=== PATIENT | male | born 1995 | race Two or more races ===

== ENCOUNTER 2020-11-14 11:19 | Emergency (ER) | payer SELFPAY ==
[~2020-11-14] VITALS: Ht 170.2 cm; Wt 70.0 kg
[2020-11-14] MEDS ORDERED: NITROGLYCERIN SUBLINGUAL 0.4 MG BOTTLE OF 25. SL PRN (12:45)
--- NOTE | 2020-11-14 12:58 | RAD ---
Exam Date: 11/14/2020 12:41 PM XR CHEST 1V Indication: Reason: chest pain for two months / Spl. Instructions: / History: FINDINGS/ IMPRESSION: The cardiac silhouette and pulmonary vasculature are within normal limits. There is no focal consolidation, pleural effusion or pneumothorax. The visualized osseous structures are intact. Electronically signed by: Osbaldo Gilman MD (11/14/2020 12:56 PM) [id number]
[2020-11-14 12:59] LABS: BASO % 0 % (0-3); EOS # 0.1 x10^3/uL (0.0-0.7); EOS % 1 % (0-3); HEMATOCRIT 46.3 % (39.0-53.0); HEMOGLOBIN 15.9 g/dL (13.0-17.5); LYMPH # 2.2 x10^3/uL (1.0-4.8); LYMPH % 34 % (24-48); MEAN CORPUSCULAR HEMOGLOBIN 29 pg (25-35); MEAN CORPUSCULAR HGB CONC 35 g/dL (31-37); MEAN CORPUSCULAR VOLUME 84 fL (79-100); MONO # 0.7 x10^3/uL (0.0-1.1); MONO % 11 % (0-9); NEUT # 3.6 x10^3/uL (1.8-7.7); NEUT % 54 % (31-73); PLATELET COUNT 416 x10^3/uL (140-400); RED CELL DISTRIBUTION WIDTH 13.3 % (11.5-14.5); WHITE BLOOD COUNT 6.6 x10^3/uL (4.0-11.0)
[2020-11-14] MEDS ORDERED: MORPHINE SULFATE 2 MG/ML VIAL. ONE (13:13)
[2020-11-14 13:16] LABS: CALCIUM 9.8 mg/dL (8.5-10.1); CREATININE 0.9 mg/dL (0.7-1.3); GFR 104.6; POTASSIUM 3.9 mmol/L (3.5-5.1)
[2020-11-14] MEDS: MORPHINE SULFATE 2 MG/ML VIAL. IV/SQ PRN (13:16)
[2020-11-14] MEDS: ASPIRIN 325 MG TABLET PO ONE (13:16)
[2020-11-14 13:19] LABS: ALBUMIN 5.2 g/dL (3.4-5.0); ALBUMIN/GLOBULIN RATIO 1.7 (1.0-1.7); MAGNESIUM 2.2 mg/dL (1.8-2.4); TOTAL BILIRUBIN 0.7 mg/dL (0.2-1.0); TOTAL PROTEIN 8.2 g/dL (6.4-8.2)
[2020-11-14 14:01] VITALS: BP 116/74
[2020-11-14 15:33] LABS: BILIRUBIN,URINE NEGATIVE (NEG); CLARITY,URINE CLEAR; COLOR,URINE YELLOW; NITRITE,URINE NEGATIVE (NEG); PROTEIN,URINE NEGATIVE (NEG-TRACE); UROBILINOGEN,URINE 0.2 mg/dL (0.2 mg/dL)
[2020-11-14 15:40] LABS: AMPHETAMINE/METHAMPHETAMINE NEG (NEG); BARBITURATES NEG (NEG); BENZODIAZEPINES NEG (NEG); CANNABINOIDS POS (NEG); COCAINE NEG (NEG); METHADONE NEG (NEG); OPIATES POS (NEG); PHENCYCLIDINE NEG (NEG)
[2020-11-14 15:58] LABS: BACTERIA,URINE FEW /HPF (0-FEW)
[2020-11-14 16:00] LABS: AMORPHOUS SEDIMENT,UR PRESENT /HPF; RBC,URINE RARE /HPF (0-2); WBC,URINE 0 /HPF (0-4)
--- NOTE | 2020-11-14 16:33 | PHYS DOC ---
Past Medical History Past Medical History: High Cholesterol Past Surgical History: No Surgical History Smoking Status: Current Every Day Smoker Additional Information: MARIJUA[place] Alcohol Use: Sober General Adult EDM: Chief Complaint: CHEST WALL PAIN HPI: HPI: Patient is a 24 year old male with history of high cholesterol who presents to the ED today complaining of a 7 out of 10 left-sided chest pain, symptoms began 2 months ago. Patient states he has the sensation of water/fluid rushing thro ugh his chest/heart region. Patient denies anything specifically exacerbating or relieving the pain but he states it is a weird feeling. He is also complaining of nose bleeding on and off for 1 year. He is also complaining of high cholesterol, he states he was tested for cholesterol 2 weeks ago and he was positive. Denies any shortness of breath. Denies anything specifically exacerbating or relieving his chest pain Review of Systems: Review of Systems: Constitutional: Denies fever or chills. [] Eyes: Denies change in visual acuity. [] HENT: Denies nasal congestion or sore throat. [] Respiratory: Denies cough or shortness of breath. [] Cardiovascular: Denies chest pain or edema. [] GI: Denies abdominal pain, nausea, vomiting, bloody stools or diarrhea. [] : Denies dysuria. [] Musculoskeletal: Denies back pain or joint pain. [] Integument: Denies rash. [] Neurologic: Denies headache, focal weakness or sensory changes. [] Endocrine: Denies polyuria or polydipsia. [] Lymphatic: Denies swollen glands. [] Psychiatric: Denies depression or anxiety. [] Heart Score: C/O Chest Pain: Yes HEART Score for Chest Pain: HEART Score for Chest Pain Response (Comments) Value History Slighlty/Non-Suspicious 0 ECG Normal 0 Age < 45 0 Risk Factors 1 or 2 Risk Factors 1 Troponin < Normal Limit 0 Total 1 Risk Factors: Risk Factors: DM, Current or recent (<one month) smoker, HTN, HLP, family history of CAD, obesity. Risk Scores: Score 0 - 3: 2.5% MACE over next 6 weeks - Discharge Home Score 4 - 6: 20.3% MACE over next 6 weeks - Admit for Clinical Observation Score 7 - 10: 72.7% MACE over next 6 weeks - Early Invasive Strategies Current Medications: Current Medications Medications (Trade) Dose Ordered Sig/[facility] Start Time Stop Time Status Last Admin Dose Admin Aspirin (Shannon Aspirin) 325 mg 1X ONCE 11/14/20 12:45 11/14/20 13:12 DC 11/14/20 13:16 325 MG Morphine Sulfate (Morphine Sulfate) 2 mg STK-MED ONCE 11/14/20 13:13 11/14/20 13:14 DC Nitroglycerin (Nitrostat) 0.4 mg PRN Q5MIN PRN 11/14/20 12:45 11/15/20 12:44 Allergies: Allergies: Allergies Coded Allergies Type Severity Reaction Last Updated Verified No Known Drug Allergies 11/14/20 No Physical Exam: PE: Constitutional: Well developed, well nourished, no acute distress, non-toxic appearance. [] HENT: Normocephalic, atraumatic, bilateral external ears normal, oropharynx moist, no oral exudates, nose normal. [] Eyes: PERRLA, EOMI, conjunctiva normal, no discharge. [] Neck: Normal range of motion, no tenderness, supple, no stridor. [] Cardiovascular:Heart rate regular rhythm, no murmur [] Lungs & Thorax: Bilateral breath sounds clear to auscultation [] Abdomen: Bowel sounds normal, soft, no tenderness, no masses, no pulsatile masses. [] Skin: Warm, dry, no erythema, no rash. [] Back: No tenderness, no CVA tenderness. [] Extremities: No tenderness, no cyanosis, no clubbing, ROM intact, no edema. [] Neurologic: Alert and oriented X 3, normal motor function, normal sensory function, no focal deficits noted. [] Psychologic: Affect normal, judgement normal, mood normal. [] Current Patient Data: Labs: Laboratory Tests Test 11/14/20 12:45 11/14/20 15:12 11/14/20 15:37 White Blood Count 6.6 x10^3/uL (4.0-11.0) Red Blood Count 5.50 x10^6/uL (4.30-5.70) Hemoglobin 15.9 g/dL (13.0-17.5) Hematocrit 46.3 % (39.0-53.0) Mean Corpuscular Volume 84 fL (79-100) Mean Corpuscular Hemoglobin 29 pg (25-35) Mean Corpuscular Hemoglobin Concent 35 g/dL (31-37) Red Cell Distribution Width 13.3 % (11.5-14.5) Platelet Count 416 x10^3/uL (140-400) H Neutrophils (%) (Auto) 54 % (31-73) Lymphocytes (%) (Auto) 34 % (24-48) Monocytes (%) (Auto) 11 % (0-9) H Eosinophils (%) (Auto) 1 % (0-3) Basophils (%) (Auto) 0 % (0-3) Neutrophils # (Auto) 3.6 x10^3/uL (1.8-7.7) Lymphocytes # (Auto) 2.2 x10^3/uL (1.0-4.8) Monocytes # (Auto) 0.7 x10^3/uL (0.0-1.1) Eosinophils # (Auto) 0.1 x10^3/uL (0.0-0.7) Basophils # (Auto) 0.0 x10^3/uL (0.0-0.2) D-Dimer (Inga) < 0.27 ug/mlFEU Sodium Level 142 mmol/L (136-145) Potassium Level 3.9 mmol/L (3.5-5.1) Chloride Level 104 mmol/L (98-107) Carbon Dioxide Level 30 mmol/L (21-32) Anion Gap 8 (6-14) Blood Urea Nitrogen 11 mg/dL (8-26) Creatinine 0.9 mg/dL (0.7-1.3) Estimated GFR (Cockcroft-Gault) 104.6 BUN/Creatinine Ratio 12 (6-20) Glucose Level 86 mg/dL (70-99) Calcium Level 9.8 mg/dL (8.5-10.1) Magnesium Level 2.2 mg/dL (1.8-2.4) Total Bilirubin 0.7 mg/dL (0.2-1.0) Aspartate Amino Transferase (AST) 24 U/L (15-37) Alanine Aminotransferase (ALT) 31 U/L (16-63) Alkaline Phosphatase 104 U/L (46-116) Troponin I Quantitative < 0.017 ng/mL (0.000-0.055) < 0.017 ng/mL (0.000-0.055) DX-Iyk-F-Type Natriuretic Peptide 18 pg/mL (0-124) Total Protein 8.2 g/dL (6.4-8.2) Albumin 5.2 g/dL (3.4-5.0) H Albumin/Globulin Ratio 1.7 (1.0-1.7) Thyroid Stimulating Hormone (TSH) 0.946 uIU/mL (0.358-3.74) Urine Collection Type Unknown Urine Color Yellow Urine Clarity Clear Urine pH 5.0 (<5.0-8.0) Urine Specific [place] <=1.005 (1.000-1.030) Urine Protein Negative mg/dL (NEG-TRACE) Urine Glucose (UA) Negative mg/dL (NEG) Urine Ketones (Stick) Trace mg/dL (NEG) Urine Blood Negative (NEG) Urine Nitrite Negative (NEG) Urine Bilirubin Negative (NEG) Urine Urobilinogen Dipstick 0.2 mg/dL (0.2 mg/dL) Urine Leukocyte Esterase Negative (NEG) Urine RBC Rare /HPF (0-2) Urine WBC 0 /HPF (0-4) Urine Squamous Epithelial Cells Occ /LPF Urine Amorphous Sediment Present /HPF Urine Bacteria Few /HPF (0-FEW) Urine Mucus Slight /LPF Urine Opiates Screen Pos (NEG) Urine Methadone Screen Neg (NEG) Urine Barbiturates Neg (NEG) Urine Phencyclidine Screen Neg (NEG) Urine Amphetamine/Methamphetamine Neg (NEG) Urine Benzodiazepines Screen Neg (NEG) Urine Cocaine Screen Neg (NEG) Urine Cannabinoids Screen Pos (NEG) Urine Ethyl Alcohol Neg (NEG) Laboratory Tests 11/14/20 12:45 Laboratory Tests 11/14/20 12:45 Vital Signs: Vital Signs Date Time Temp Pulse Resp B/P (MAP) Pulse Ox O2 Delivery O2 Flow Rate FiO2 11/14/20 14:01 88 116/74 (88) 99 Room Air 11/14/20 12:15 98.7 12 98.7 EKG: EKG: Interpreted by Dr. Scruggs atrial arrhythmia with flipped T waves, Atrial beats non Specific ST elevations on V2 no STEMI[] Radiology/Procedures: Radiology/Procedures: []PROCEDURE: PORTABLE CHEST 1V Exam Date: 11/14/2020 12:41 PM XR CHEST 1V Indication: Reason: chest pain for two months / Spl. Instructions: / History: FINDINGS/ IMPRESSION: The cardiac silhouette and pulmonary vasculature are within normal limits. There is no focal consolidation, pleural effusion or pneumothorax. The visualized osseous structures are intact. Electronically signed by: Sirisha Gilman MD (11/14/2020 12:56 PM) [id number] DICTATED and SIGNED BY: SIRISHA GILMAN MD DATE: 11/14/20 [id number] 0 Course & Med Decision Making: Course & Med Decision Making Pertinent Labs and Imaging studies reviewed. 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 EKG noted for atrial arrhythmias. Labs are negative. Patient advised to follow-up with a velvet weaver. Patient is a smoker, encouraged to consider smoking cessation, nicotine patches provided. Spent 5 minutes on this discussion. Noted for marijuana use, encouraged to consider not using drugs. Provided cardiology for follow-up Dragon Disclaimer: Palomo Disclaimer: This electronic medical record was generated, in whole or in part, using a voice recognition dictation system. Departure Departure Impression: Primary Impression: Arrhythmia Qualified Codes: I49.9 - Cardiac arrhythmia, unspecified Additional Impressions: Chest pain Qualified Codes: R07.9 - Chest pain, unspecified Epistaxis Smoking addiction Marijuana use Disposition: HOME / SELF CARE / HOMELESS Condition: STABLE Referrals: NO PCP (PCP) LUIS MANUEL HILL MD follow up in the next 7 days Patient Instructions: Cardiac Arrhythmia, Chest Pain (Nonspecific), Nosebleed, [id number] Additional Instructions: You were evaluated in the emergency room and noted to have arrhythmias. Please follow-up with the provided velvet weaver as soon as possible. Also follow-up with your primary care doctor. Please consider smoking cessation Scripts Nicotine (NICODERM CQ 21mg) 1 Each Patch.td24 1 PATCH TP DAILY, #28 PATCH 1 Refill Prov: JULES MATHEWS APRN 11/14/20 JULES MATHEWS APRN Nov 14, 2020 16:33
[2020-11-14] MEDS ORDERED: NICO1PAT21 TP (16:51)
== END 2020-11-14 16:55 | disposition home or self-care (01) ==
LOC: ER 11:19
DX: I49.9 Cardiac arrhythmia, unspecified (principal); R07.89 Other chest pain; R04.0 Epistaxis; R20.2 Paresthesia of skin; F12.90 Cannabis use, unspecified, uncomplicated; E78.00 Pure hypercholesterolemia, unspecified; F17.200 Nicotine dependence, unspecified, uncomplicated
CPT/HCPCS: 36415; 71045; 80053; 80307; 81001; 83735; 83880; 84443; 84484; 85025; 85379; 93005; 96374; 99285; J2270